=== PATIENT | female | born 2005 | race Caucasian/White ===

== ENCOUNTER → 2025-02-16 08:08 | Outpatient (CLI) | payer BC, SELFPAY ==
--- NOTE | 2025-02-16 08:13 | DI.US.S_ITS ---
PROCEDURE: US OB >= 14 WEEKS FETUS INDICATIONS: 20 week anatomy scan OUTSIDE/PRIOR DATING DATA: Working JER: 07/12/2024 TECHNIQUE: Real-time scanning was performed of the fetus, with image documentation and biometric measurements. Endovaginal scanning: Not obtained COMPARISON: None. FINDINGS: General: A single living intrauterine gestation is present. Presentation: Variable. Placenta: Placental position is anterior , without previa. Amniotic fluid index: 10.2 cm, normal range is 5-24 cm. Single deepest vertical pocket is 3.2 cm. heart rate: 147 beats per minute. Maternal cervical canal: 2.5 cm long. Normal lower limit is 2.5 cm. biometrics: Biparietal diameter: 4.1 cm 18 weeks 2 days Head circumference: 16.0 cm 18 weeks 6 days Abdominal circumference: 15.2 cm 20 weeks 3 days Femur length: 2.9 cm 18 weeks 6 days Clinically estimated gestational age: 19 weeks 6 days Composite gestational age from present scan: 19 weeks 1 day Estimated weight and percentile: 301 g 30th percentile Anatomic survey: Neuro: Ventricles are non-dilated at less than 10 mm. Cisterna magna is normal at 3-11 mm. Cerebellum is normal in size and morphology. Nuchal skin fold: Normal at less than 6 mm between 14-21 weeks gestational age. Face: Nose and lips, facial profile are normal. Spine: Not well seen. Heart: 4-chambered heart is present, with normal ventricular outflow tracts. Diaphragm: Diaphragm is intact. Stomach: Left-sided stomach is present. Kidneys: No hydronephrosis. Normal is less than 5 mm in 2nd trimester, less than 7 mm in 3rd trimester. Cord: 3-vessel cord has orthotopic insertion. Bladder: Normal in size. Extremities: All 4 extremities identified. IMPRESSION: Single live intrauterine with gestational age today of 19 weeks 1 day. Spine is not well seen. Recommend follow-up ultrasound imaging. We strive to produce accurate, complete, and clear reports of imaging services. To assist us in improving patient care, this report was composed using standard report templates and voice recognition software. Therefore, it may contain abnormal punctuation, insertions and/or omissions. Occasional wrong-word or sound-alike substitutions may occur. Though we review the report and make efforts to correct it, we do recommend that the report be read carefully in proper context to recognize any text inaccuracies. Dictated by: Diana Mathew M.D. on 02/16/2025 at 16:14 Approved by: Diana Mathew M.D. on 02/16/2025 at 16:16
== END ==
PROVIDERS: Referring Provider Nurse Practitioner Obstetrics & Gynecology; Visit Provider Nurse Practitioner Obstetrics & Gynecology
DX: Z34.02 Encounter for supervision of normal first pregnancy, second trimester (principal); Z3A.19 19 weeks gestation of pregnancy
CPT/HCPCS: 76811